=== PATIENT | female | born 1990 | race Caucasian/White ===

== ENCOUNTER 2018-02-10 10:03 | Emergency (ER) | payer MEDICAID, OTHER ==
[~2018-02-10] VITALS: Ht 162.6 cm; Wt 58.1 kg
[~2018-02-10 10:03] MED LIST: FERR-15 PO; IBUP-974 PO; PREN-385 PO
[2018-02-10 10:10] VITALS: BP 115/74
[2018-02-10 11:14] VITALS: BP 113/72
== END 2018-02-10 11:13 | disposition home or self-care (01) ==
LOC: MED 10:03
DX: L60.0 Ingrowing nail (principal)
CPT/HCPCS: 99283

== ENCOUNTER 2023-05-27 08:40 | Emergency (ER) | payer OTHER ==
[~2023-05-27] VITALS: Ht 162.6 cm; Wt 60.8 kg
[2023-05-27 08:47] VITALS: BP 112/74; PULSE 81; RESP 20; TEMP 98.4; O2SAT 99
--- NOTE | 2023-05-27 09:08 | NUR ---
PATIENT AMUBLATED TO ER BED 02
[2023-05-27 09:10] VITALS: PULSE 81
[2023-05-27 09:11] VITALS: O2SAT 99
--- NOTE | 2023-05-27 09:14 | NUR ---
LLQ ABD PAIN WITH BLOATING, DENIES N/V, DENIES FEVER. PATIENT TESTED POSITIVE FOR BUT UNSURE OF VIABILITY SHE HAD VAGINAL BLEEDING RECENTLY.
--- NOTE | 2023-05-27 09:18 | NUR ---
33 Y/O F PATIENT PRESENTS TO ED WITH CHIEF COMPLAINT OF LEFT SIDED ABD PAIN. WITH REBOUND TENDERNESS. PT STATES SHES BEEN IN PAIN FOR 2 DAYS BUT HAS HAD SOME VAGINAL BLEEDING FOR 1 WEEK. PT IS 1 WEEKS . PTS LAST MENSTURAL CYCLE 04/01/2023. DENIES N/V/D; SKIN IS PINK/WARM/DRY; AAOX4 WITH EVEN AND STEADY GAIT; LUNGS CLEAR BL; HR EVEN AND REGULAR; PT DENIES ANY FEVER, CP, SOB, OR COUGH AT THIS TIME; PATIENT STATES PAIN OF 6/10 AT THIS TIME; VSS; PATIENT POSITIONED FOR COMFORT; HOB ELEVATED; CALL LIGHT WITH IN REACH BEDRAILS UP X2; BED DOWN. ER MD MADE AWARE OF PT STATUS. PMHX NONE ALLERGIES NONE
--- NOTE | 2023-05-27 09:21 | NUR ---
LAB AT BEDSIDE.
[2023-05-27 09:32] LABS: APPEARANCE,URINE CLEAR (CLEAR); BILIRUBIN,URINE NEGATIVE (NEGATIVE); BLOOD, URINE TRACE-I (NEGATIVE); COLOR,URINE YELLOW (YELLOW); LEUKOCYTE ESTERASE ,URINE 2+ (NEGATIVE); NITRITE, URINE NEGATIVE (NEGATIVE); PH,URINE 6.5 (5.0-9.0); UGLUCOSE NEGATIVE (NEGATIVE)
[2023-05-27 09:33] LABS: BASOPHILS % (AUTO) 0.8 % (0.0-2.0); EOSINOPHILS # (AUTO) 0.1 K/uL (0-0.4); EOSINOPHILS % (AUTO) 1.3 % (0.0-4.0); HEMATOCRIT 35.7 % (36-48); LYMPHOCYTES # (AUTO) 1.5 K/uL (2.5-16.5); LYMPHOCYTES % (AUTO) 26.7 % (20.5-51.1); MEAN CORPUSCULAR HEMOGLOBIN 32 pg (27-31); MEAN CORPUSCULAR HGB CONC 34 g/dL (33-37); MEAN CORPUSCULAR VOLUME 93.7 fL (80-94); MONOCYTES # (AUTO) 0.4 K/uL (0.8-1.0); MONOCYTES % (AUTO) 6.4 % (1.7-9.3); NEUTROPHILS # (AUTO) 3.7 K/uL (1.8-7.7); NEUTROPHILS % (AUTO) 64.8 % (42.2-75.2); PLATELET COUNT (AUTO) 277 K/uL (140-450); RED BLOOD CELL COUNT(AUTO) 3.81 MIL/uL (4.20-5.40); RED CELL DISTRIBUTION WIDTH 13.2 % (11.6-13.7); WHITE BLOOD COUNT (AUTO) 5.7 K/uL (4.8-10.8)
[2023-05-27 09:51] LABS: RBC,URINE 0-5 /HPF (0-5)
[2023-05-27 09:59] LABS: ALBUMIN 3.9 g/dL (3.4-5.0); ANION GAP 10.3 (8-16); CARBON DIOXIDE 27.6 mmol/L (21-32); CREATININE 0.8 mg/dL (0.6-1.3); POTASSIUM 3.9 mmol/L (3.5-5.1); TOTAL BILIRUBIN 0.3 mg/dL (0.0-1.0)
[2023-05-27 10:31] VITALS: BP 142/79; RESP 78; TEMP 98.2; O2SAT 100
--- NOTE | 2023-05-27 10:32 | NUR ---
Patient discharged with v/s stable. Written and verbal after care instructions given and explained. Patient verbalized understanding. Ambulatory with steady gait. All questions addressed prior to discharge. Advised to follow up with PMD.
== END 2023-05-27 10:32 | disposition home or self-care (01) ==
LOC: MED 08:40
DX: O03.9 Complete or unspecified spontaneous abortion without complication (principal); Z79.899 Other long term (current) drug therapy
CPT/HCPCS: 36415; 76801; 80053; 81001; 81025; 84702; 85025; 87086; 99284; Q0092

== ENCOUNTER 2024-02-12 09:44 | Emergency (ER) | payer OTHER ==
[~2024-02-12] VITALS: Ht 162.6 cm; Wt 61.2 kg
[2024-02-12 10:10] VITALS: BP 118/74; PULSE 80; RESP 17; TEMP 96.5; O2SAT 99
[2024-02-12] MEDS ORDERED: NITR100C7 PO (12:36)
[2024-02-12 12:44] VITALS: BP 121/72; PULSE 78; RESP 16; TEMP 98; O2SAT 99
== END 2024-02-12 12:00 | disposition home or self-care (01) ==
LOC: MED 09:44
DX: O23.41 Unspecified infection of urinary tract in pregnancy, first trimester (principal); N39.0 Urinary tract infection, site not specified; Z79.1 Long term (current) use of non-steroidal anti-inflammatories (NSAID); Z79.899 Other long term (current) drug therapy; Z3A.09 9 weeks gestation of pregnancy
CPT/HCPCS: 81002; 81025; 99283